=== PATIENT | female | born 1965 | race Hispanic/Latino ===

== ENCOUNTER → 2018-11-13 | Outpatient (CLI) | payer OTHER ==
--- NOTE | 2018-11-13 11:34 | Diagnostic Imaging Report ---
Abdominal ultrasound. History: Left lower quadrant pain Comparison: <None available>. Discussion: Transverse and longitudinal images of the abdomen were obtained demonstrating a liver of normal size with increased echogenicity measuring 13.9 cm in length. The portal vein is patent with hepatopetal flow and is within normal limits measuring 8 mm in diameter. The biliary tree is within normal limits with the common bile duct measuring 2 mm in diameter. The gallbladder is normal without evidence of stones, wall thickening or pericholecystic fluid. The sonographic Berumen's sign was negative. The kidneys are normal in size and echogenicity bilaterally without evidence of hydronephrosis, stones or mass. The right kidney measures 10.6 x 5.5 x 4.6 cm and the left kidney measures 9.7 x 5.0 x 3.6 cm. The spleen is normal in size and appearance measuring 8.3 x 3.0 x 3.2 cm. The pancreatic <head and body> are visualized and are normal in appearance. The abdominal aorta is within normal limits. The IVC is normal. There is no evidence of free fluid. IMPRESSION: Fatty infiltration of the liver. Signed by: Dr. Norm Hilliard DO on 11/13/2018 11:31 AM
--- NOTE | 2018-11-13 12:13 | Diagnostic Imaging Report ---
Pelvic ultrasound. History: Left lower quadrant pain Comparison: <None available>. Discussion: Transabdominal evaluation of the pelvis was performed in the transverse and longitudinal planes. The uterus is small measuring 6.2 x 3.2 x 2.8 cm. The endometrial stripe is within normal limits at 2 mm. Neither the right or left ovary are visualized. There is no evidence of an adnexal mass. There is no evidence of free fluid. IMPRESSION: Small atrophic appearing uterus with nonvisualization of either right or left ovary. Signed by: Dr. Norm Hilliard DO on 11/13/2018 12:09 PM
== END ==
LOC: US 09:23
PROVIDERS: ATTEND Internal Medicine Gastroenterology
DX: R10.32 Left lower quadrant pain (principal)
CPT/HCPCS: 76700; 76856